=== PATIENT | male | born 2000 | race Two or more races ===

== ENCOUNTER 2024-10-28 14:24 | Emergency (ER) | payer OTHER ==
[~2024-10-28] VITALS: Ht 175.3 cm; Wt 70.3 kg
[~2024-10-28 14:24] MED LIST: ONDA4TAB5 PO
[2024-10-28 15:08] VITALS: BP 128/75; TEMP 98.1; O2SAT 99
[2024-10-28] MEDS ORDERED: CIPR7.5D9 RIGHT EAR (15:26)
== END 2024-10-28 15:56 | disposition home or self-care (01) ==
LOC: ER 14:34
DX: H60.91 Unspecified otitis externa, right ear (principal); Z79.899 Other long term (current) drug therapy